=== PATIENT | male | born 1955 | race African-American/Black ===

== ENCOUNTER → 2016-11-30 | Outpatient (CLI) | payer BC ==
[~2016-11-30] MED LIST: LISI-461 PO; MULT-506 PO
--- NOTE | 2016-11-30 08:41 | DIAGNOSTIC IMAGING REPORT ---
LEFT UPPER ARM ULTRASOUND CLINICAL HISTORY: SOFT TISSUE MASS L HUMERUS COMPARISON STUDY: None. FINDINGS: There is a elongated 1.9 x 1.7 x 0.4 cm heterogeneous well-circumscribed nodule within the subcutaneous location of the left upper arm. This is slightly hyperechoic in comparison to the adjacent fat lobules. Therefore, this favors a lipoma. No fluid collections identified IMPRESSION: A 1.9 x 1.7 x 0.4 cm nodule within the subcutaneous soft tissues of the left upper arm. This favors a lipoma. However, if this is increasing in size or is painful, then surgical resection should be considered. Electronically signed by: Guillermo Corley M.D. 11/30/2016 8:39 AM Dictated Date/Time: 11/30/2016 8:37 AM
== END | disposition home or self-care (01) ==
LOC: C.ULTR 08:13
DX: M79.9 Soft tissue disorder, unspecified (principal)

== ENCOUNTER → 2017-09-17 | Outpatient (CLI) | payer OTHER | END | disposition home or self-care (01) | LOC: C.PATH 08:05 | DX: R22.32 Localized swelling, mass and lump, left upper limb (principal); D17.9 Benign lipomatous neoplasm, unspecified ==